=== PATIENT | female | born 1990 | race Caucasian/White ===

== ENCOUNTER 2022-09-30 16:24 | Emergency (ER) | payer OTHER ==
[~2022-09-30] VITALS: Ht 162.6 cm; Wt 48.1 kg
[2022-09-30] MEDS ORDERED: CEFDINIR300 MG PO (17:24)
[2022-09-30] MEDS ORDERED: IBUPROFEN200 MG PO (17:24)
[2022-09-30] MEDS ORDERED: THERAFLU FLU &1 EAC1 PO (17:24)
== END 2022-09-30 17:38 | disposition home or self-care (01) ==
LOC: FSED 16:29
DX: R05.9 Cough, unspecified (principal); J40 Bronchitis, not specified as acute or chronic; J06.9 Acute upper respiratory infection, unspecified; H92.02 Otalgia, left ear
CPT/HCPCS: 83518; 87400; 99282